=== PATIENT | male | born 1980 | race African-American/Black ===

== ENCOUNTER 2018-05-15 09:00 | Emergency (ER) | payer SELFPAY ==
[~2018-05-15] VITALS: Ht 165.1 cm; Wt 106.0 kg
[2018-05-15] MEDS ORDERED: TETRACAINE 0.5% OPHTH DROPS 4ML OP ONE (09:45)
[2018-05-15] MEDS ORDERED: FLUORESCEIN SODIUM 1MG/STRIP OP ONE (09:45)
[2018-05-15] MEDS ORDERED: IBUPROFEN 600MG TABLET PO ONE (10:15)
[2018-05-15 11:25] VITALS: BP 123/86
== END 2018-05-15 11:44 | disposition home or self-care (01) ==
LOC: ER 10:13
DX: S05.01XA Injury of conjunctiva and corneal abrasion without foreign body, right eye, initial encounter (principal); F12.10 Cannabis abuse, uncomplicated; J45.909 Unspecified asthma, uncomplicated; X99.8XXA Assault by other sharp object, initial encounter; Y93.89 Activity, other specified; Y92.89 Other specified places as the place of occurrence of the external cause; Y99.8 Other external cause status
CPT/HCPCS: 99284; J7030